=== PATIENT | male | born 1995 | race Caucasian/White ===

== ENCOUNTER 2024-02-14 10:20 | Emergency (ER) | payer SELFPAY ==
[2024-02-14] MEDS: Triamcinolone Acetonide 40 MG/ML 1 ML SDV INJECT STA (10:43)
[2024-02-14 11:31] VITALS: BP 131/79; PULSE 78
== END 2024-02-14 11:30 | disposition home or self-care (01) ==
LOC: MW.ED 10:20
DX: L29.9 Pruritus, unspecified (principal); Z75.8 Other problems related to medical facilities and other health care
CPT/HCPCS: 96372; 99283; J3301